=== PATIENT | female | born 1980 | race African-American/Black ===

== ENCOUNTER 2017-11-04 10:02 | Emergency (ER) | payer MEDICAID ==
[~2017-11-04] VITALS: Ht 170.2 cm; Wt 85.0 kg
[~2017-11-04 10:02] MED LIST: AMLO5 PO
[2017-11-04 10:09] VITALS: BP 159/100; PULSE 103; RESP 20; TEMP 97.9; O2SAT 100
--- NOTE | 2017-11-04 10:41 | PD ---
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 The patient states she missed her menstrual cycle last month and thought she was possibly . She did complain of mild nausea with 2 episodes of vomiting, however, took a test last week which was negative. The patient then developed light vaginal spotting this morning which has turned heavier, she now notes heavier vaginal bleeding. She does complain of lower pelvic pain and cramping. She denies any dysuria, frequency, urgency, or vaginal discharge. She denies any associated fever, chills, or sweats. Symptoms are moderate. PFSH Past Medical History Medical History: Denies Significant Hx Cancer: No Diabetes: No Diminished Hearing: No Hepatitis: No Hiatal Hernia: No Hypertension: Yes Immunizations Current: Yes Thyroid Disease: No ?: Unknown LMP: 318 : 3 Para: 1 Miscarriage: 0 : 2 Past Surgical History Pacemaker: No Social History Alcohol Use: Yes (OCCASIONALLY) Tobacco Use: Yes (1/2 PPD) Substance Use: No Allergies-Medications (Allergen,Severity, Reaction): Coded Allergies: No Known Allergies (Verified Adverse Reaction, Unknown, 11/04/17) Reported Meds & Prescriptions Reported Meds & Active Scripts Active Norvasc (Amlodipine Besylate) 5 Mg Tab 5 Mg PO DAILY 30 Days Review of Systems Except as stated in HPI: all other systems reviewed are Neg General / Constitutional: No: Fever Cardiovascular: No: Chest Pain or Discomfort Respiratory: No: Shortness of Breath Gastrointestinal: Positive: Nausea, Vomiting (Earlier in the week which has resolved), No: Abdominal Pain Genitourinary: Positive: Pelvic Pain, Vaginal Bleeding, No: Urgency, Frequency , Dysuria, Discharge Neurologic: No: Weakness, Dizziness Physical Exam Narrative GENERAL: Awake, alert, pleasant 37-year-old female who appears her stated age and is in no acute respiratory distress. SKIN: Focused skin assessment warm/dry. HEAD: Atraumatic. Normocephalic. EYES: No injection or drainage. NECK: Trachea midline. No JVD. CARDIOVASCULAR: Regular rate and rhythm. No murmur appreciated. RESPIRATORY: No accessory muscle use. Clear to auscultation. Breath sounds equal bilaterally. GASTROINTESTINAL: Abdomen soft, mild suprapubic tenderness. No rebound tenderness. No guarding or rigidity. Back: No CVA tenderness. MUSCULOSKELETAL: No obvious deformities. No clubbing. No cyanosis. No edema. NEUROLOGICAL: Awake and alert. No obvious cranial nerve deficits. Motor grossly within normal limits. Normal speech. PSYCHIATRIC: Appropriate mood and affect; insight and judgment normal. Data Data Last Documented VS Vital Signs Date Time Temp Pulse Resp B/P (MAP) Pulse Ox O2 Delivery O2 Flow Rate FiO2 11/04/17 10:09 97.9 103 20 159/100 (119) 100 Orders Orders Beta Hcg (Quant/Titer) (11/04/17 10:37) Ed Discharge Order (11/04/17 11:53) Ibuprofen (Motrin) (11/04/17 12:00) Labs Laboratory Tests Test 11/04/17 10:48 Human Chorionic Gonadotropin, Quant LESS THAN 1 MIU/ML [facility] Medical Decision Making Medical Screen Exam Complete: Yes Emergency Medical Condition: Yes Medical Record Reviewed: Yes Interpretation(s) Laboratory Tests Test 11/04/17 10:48 Human Chorionic Gonadotropin, Quant LESS THAN 1 MIU/ML Differential Diagnosis Differential diagnosis includes ectopic , threatened AB, missed AB, , dysmenorrhea, menorrhagia, abnormal uterine bleeding. Narrative Course Patient had symptoms consistent with possible with nausea, vomiting, and missed menstrual cycle, however, had a negative UA test at home. Therefore, quantitative beta-hCG was sent to lab. Quantitative beta-hCG is less than 1. The patient is not . The patient was administered ibuprofen 600 mg orally will be discharged home in ibuprofen 600 mg every 6 hours as needed for pain and cramping. She is advised to follow-up with her primary physician. Return if symptoms worsen or progress. Diagnosis Primary Impression: Dysmenorrhea Patient Instructions: General Instructions Additional Instructions: Medications as directed. Follow-up with your primary physician. Return if symptoms worsen or progress. Med/Other Pt SpecificInfo: Prescription(s) given Scripts Ibuprofen (Ibuprofen) 600 Mg Tab 600 MG PO Q6H Y for Pain/Inflammation, #20 TAB 0 Refills Prov: Luis Carlos Dickey MD 11/04/17 Disposition: 01 DISCHARGE HOME Condition: Stable Luis Carlos Dickey MD November 04, 2017 10:41
[2017-11-04] MEDS ORDERED: IBUP-232 PO (11:57)
[2017-11-04] MEDS ORDERED: IBUPROFEN 600 MG TAB PO ONE (12:00)
== END 2017-11-04 12:10 | disposition home or self-care (01) ==
LOC: NEPD 10:02
DX: N94.6 Dysmenorrhea, unspecified (principal); R10.2 Pelvic and perineal pain; R11.2 Nausea with vomiting, unspecified; F17.200 Nicotine dependence, unspecified, uncomplicated; I10 Essential (primary) hypertension
CPT/HCPCS: 84702; 99283

== ENCOUNTER 2017-12-28 22:18 | Emergency (ER) | payer MEDICAID ==
[~2017-12-28] VITALS: Ht 165.1 cm; Wt 78.0 kg
[~2017-12-28 22:18] MED LIST changes: +IBUP-232 PO
[2017-12-28 23:07] VITALS: BP 142/88; PULSE 98; RESP 22; TEMP 98.5; O2SAT 97
--- NOTE | 2017-12-29 00:32 | RADRPT ---
EXAM DATE: 12/29/2017 12:18 AM EDT AGE/SEX: 37 years / Female INDICATIONS: Anterior chest wall pain, and back pain. CLINICAL DATA: This is the patient's initial encounter. Patient reports that signs and symptoms have been present for 1 day and indicates a pain score of 8/10. MEDICAL/SURGICAL HISTORY: None. None. COMPARISON: No prior exams available for comparison. FINDINGS: The heart size is normal. There is minimal increased density seen at the bases. The mid and upper samira gs are clear. Significant effusion is not seen. CONCLUSION: Minimal increased density at the bases likely related to minimal atelectasis or consolidation. Electronically signed by: Ariel García MD 12/29/2017 12:30 AM EDT
--- NOTE | 2017-12-29 00:33 | RADRPT ---
EXAM DATE: 12/29/2017 12:27 AM EDT AGE/SEX: 37 years / Female INDICATIONS: Trauma; fall. CLINICAL DATA: This is the patient's initial encounter. Patient reports that signs and symptoms have been present for 1 day and indicates a pain score of 2/10. MEDICAL/SURGICAL HISTORY: None. None. RADIATION DOSE: 56.35 CTDI (mGy) COMPARISON: No prior exams available for comparison. TECHNIQUE: CT of the head without contrast. Using automated exposure control and adjustment of the mA and/or kV according to patient size, radiation dose was kept as low as reasonably achievable to ob tain optimal diagnostic quality images. DICOM format image data is available electronically for revi ew and comparison. FINDINGS: Cerebrum: The ventricles are normal for age. No evidence of midline shift, mass lesion, hemorrhage or acute infarction. No extraaxial fluid collections are seen. Posterior Fossa: The cerebellum and brainstem are intact. The 4th ventricle is midline. The cerebe llopontine angle is unremarkable. Extracranial: The visualized portion of the orbits is intact. Skull: The calvaria is intact. No evidence of skull fracture. CONCLUSION: Negative noncontrast CT examination the head. Electronically signed by: Ariel García MD 12/29/2017 12:32 AM EDT
[2017-12-29 00:38] LABS: AUTOMATED NEUTROPHIL # 14.8 TH/MM3 (1.8-7.7); BASOPHIL % 0.2 % (0.0-2.0); EOSINOPHIL % 0.1 % (0.0-4.0); HEMATOCRIT 40.6 % (35.0-46.0); HEMOGLOBIN 13.9 GM/DL (11.6-15.3); LYMPH % 11.5 % (9.0-44.0); LYMPHOCYTE # 2.1 TH/MM3 (1.0-4.8); MEAN CELL VOLUME 92.6 FL (80.0-100.0); MEAN CORPUSCULAR HEMOGLOBIN 31.6 PG (27.0-34.0); MEAN CORPUSCULAR HGB CONC 34.2 % (32.0-36.0); MEAN PLATELET VOLUME 7.6 FL (7.0-11.0); MONO % 5.1 % (0.0-8.0); MONOCYTE # 0.9 TH/MM3 (0-0.9); NEUT % 83.1 % (16.0-70.0); PLATELET COUNT 333 TH/MM3 (150-450); RED BLOOD COUNT 4.38 MIL/MM3 (4.00-5.30); RED CELL DISTRIBUTION WIDTH 14.4 % (11.6-17.2); WHITE BLOOD COUNT 17.9 TH/MM3 (4.0-11.0)
--- NOTE | 2017-12-29 00:59 | PD ---
HPI Chief Complaint: Respiratory Symptoms Time Seen by Provider: 23:50 Travel History International Travel<30 days: No Contact w/Intl Traveler<30days: No Traveled to known affect area: No History of Present Illness HPI The patient is a 37 year old female who presents to the [facility] emergency department with a history of coughing prior to arrival at approximately 8 PM when she felt a sudden pop and the left side of her mid back. The patient reports that she developed a severe pain on the left side. She reports that the pain radiated around to the lower chest. She reports that it is made worse with any movement or taking a deep breath. The patient reports that she went to lie down after taking Aleve and the pain was improved, however when she tried to stand up to go to the bathroom the pain recurred. She reports that she slid down on the floor and hit her head. She reportedly had an episode of shaking after hitting her head for 4 seconds. She did not have any postictal state. She did not bite her tongue. The patient denies having any nausea or vomiting. She reports that she has had some congestion recently, however no productive cough. She denies having any recent fevers. She reports that over the last week she has had flank pain that she describes as a sensation of gas, a bubble sensation in the left side of her back. She denies having any dysuria, hematuria, urinary urgency, or frequency associated with this. She denies having any neck pain, paresthesias, or weakness of her extremities. She denies having abdominal pain, diarrhea, or other neurologic symptoms. The patient reports that she has been moving her bowels regularly. She last moved her bowels yesterday. The patient denies having any numbness or tingling that radiates down her legs. She denies having any pain that radiates down her legs. She denies any loss of bowel or bladder control. She denies any IV drug use. She denies having any night sweats. [facility] Past Medical History Narrative Medical The patient's past medical history is significant for hypertension. Her last menstrual cycle was December 13, 2017. Cancer: No Cardiovascular Problems: No Diabetes: No Diminished Hearing: No Hepatitis: No Hiatal Hernia: No Hypertension: Yes Respiratory: No Immunizations Current: Yes Thyroid Disease: No Tetanus Vaccination: Unknown Influenza Vaccination: No ?: Unknown LMP: 12/13/17 : 3 Para: 1 Miscarriage: 0 : 2 Past Surgical History Narrative Surgical The patient's past surgical history is significant for carpal tunnel release on the right Pacemaker: No Other Surgery: No Social History Alcohol Use: Yes (OCCASIONALLY) Tobacco Use: Yes (1/2 PPD) Substance Use: No Allergies-Medications (Allergen,Severity, Reaction): Coded Allergies: No Known Allergies (Verified Adverse Reaction, Unknown, 12/28/17) Reported Meds & Prescriptions Reported Meds & Active Scripts Active Ibuprofen 600 Mg Tab 600 Mg PO Q6H PRN Norvasc (Amlodipine Besylate) 5 Mg Tab 5 Mg PO DAILY 30 Days Review of Systems Except as stated in HPI: all other systems reviewed are Neg General / Constitutional: No: Fever Eyes: No: Visual changes HENT: Positive: Congestion, No: Headaches, Neck Stiffness, Neck Pain Cardiovascular: Positive: Dyspnea on exertion, No: Chest Pain or Discomfort Respiratory: Positive: Cough, Shortness of Breath Gastrointestinal: No: Nausea, Vomiting, Diarrhea, Abdominal Pain Genitourinary: Positive: Flank Pain (Left side), No: Dysuria Musculoskeletal: Positive: Myalgias, Pain Skin: No Rash Neurologic: No: Weakness, Focal Abnormalities, Change in Mentation, Slurred Speech, Sensory Disturbance Psychiatric: No: Depression Endocrine: No: Polydipsia Hematologic/Lymphatic: No: Easy Bruising Physical Exam Narrative General: The patient is a well-developed well-nourished female in no acute distress. Head and Neck exam: Head is normocephalic atraumatic. Eyes: EOMI, pupils are equal round and reactive to light. Nose: Midline septum with pink mucous membranes Mouth: Dentition unremarkable. Moist mucus membranes. Posterior oropharynx is not erythematous. No tonsillar hypertrophy. Uvula midline. Airway patent. Neck: No palpable lymphadenopathy. No nuchal rigidity. No thyromegaly. Cardiovascular: Regular rate and rhythm without murmurs, gallops, or rubs. No pulse deficit to the extremities on simultaneous auscultation and palpation of her radial artery. Lungs: Clear to auscultation bilaterally. No wheezes, rhonchi, or rales. Abdomen: Soft, without tenderness to palpation in all 4 quadrants of the abdomen. No guarding, rebound, or rigidity. Normal bowel sounds are audible. No tenderness on palpation of McBurney's point. Negative Mg sign. Extremities: No clubbing, cyanosis, or edema. 2+ pulses in all 4 extremities. No calf tenderness on palpation. Back: No spinous process tenderness to palpation. The patient has paraspinal muscle tenderness on palpation along the lower thoracic, upper lumbar paraspinal musculature of the left side. The patient has left-sided CVA tenderness on palpation. No rashes noted. The patient has a positive straight leg raise on the left. Neurologic Exam: Cranial nerves 2-12 were intact on exam. Strength is 5/5 in all 4 extremities. No sensory deficits noted. Skin Exam: No rash noted. Intact skin that is warm and dry. Data Data Last Documented VS Vital Signs Date Time Temp Pulse Resp B/P (MAP) Pulse Ox O2 Delivery O2 Flow Rate FiO2 12/29/17 02:48 87 19 145/77 (99) 98 Room Air 12/28/17 23:07 98.5 Orders Orders Electrocardiogram (12/29/17 00:05) Complete Blood Count With Diff (12/29/17 00:05) Comprehensive Metabolic Panel (12/29/17 00:05) Creatine Kinase (Cpk) (12/29/17 00:05) Ckmb (Isoenzyme) Profile (12/29/17 00:05) Troponin I (12/29/17 00:05) B-Type Natriuretic Peptide (12/29/17 00:05) Prothrombin Time / Inr (Pt) (12/29/17 00:05) Act Partial Throm Time (Ptt) (12/29/17 00:05) Lipase (12/29/17 00:05) Urinalysis - C+S If Indicated (12/29/17 00:05) Magnesium (Mg) (12/29/17 00:05) Thyroid Stimulating Hormone (12/29/17 00:05) Chest, Single Ap (12/29/17 00:05) Ct Brain W/O Iv Contrast(Rout) (12/29/17 00:05) Iv Access Insert/Monitor (12/29/17 00:05) Ecg Monitoring (12/29/17 00:05) Oximetry (12/29/17 00:05) Ed Urine Pregnancytest Poc (12/29/17 00:05) Drug Screen, Random Urine (12/29/17 00:05) Alcohol (Ethanol) (12/29/17 00:05) D-Dimer (12/29/17 00:05) Spine, Thoracic-Ap/Lat/Sw(3vw) (12/29/17 00:47) Spine, Lumbar - Ltd (Ap & Lat) (12/29/17 00:47) Sodium Chlor 0.9% 1000 Ml Inj (Ns 1000 M (12/29/17 01:00) Morphine Inj (Morphine Inj) (12/29/17 01:00) Prochlorperazine Inj (Compazine Inj) (12/29/17 01:00) CKMB (12/29/17 00:15) CKMB% (12/29/17 00:15) Cath For Specimen (12/29/17 02:46) Ceftriaxone Inj (Rocephin Inj) (12/29/17 03:30) Labs Laboratory Tests Test 12/29/17 00:15 12/29/17 02:45 White Blood Count 17.9 TH/MM3 Red Blood Count 4.38 MIL/MM3 Hemoglobin 13.9 GM/DL Hematocrit 40.6 % Mean Corpuscular Volume 92.6 FL Mean Corpuscular Hemoglobin 31.6 PG Mean Corpuscular Hemoglobin Concent 34.2 % Red Cell Distribution Width 14.4 % Platelet Count 333 TH/MM3 Mean Platelet Volume 7.6 FL Neutrophils (%) (Auto) 83.1 % Lymphocytes (%) (Auto) 11.5 % Monocytes (%) (Auto) 5.1 % Eosinophils (%) (Auto) 0.1 % Basophils (%) (Auto) 0.2 % Neutrophils # (Auto) 14.8 TH/MM3 Lymphocytes # (Auto) 2.1 TH/MM3 Monocytes # (Auto) 0.9 TH/MM3 Eosinophils # (Auto) 0.0 TH/MM3 Basophils # (Auto) 0.0 TH/MM3 CBC Comment DIFF FINAL Differential Comment Prothrombin Time 10.0 SEC Prothromb Time International Ratio 1.0 RATIO Activated Partial Thromboplast Time 25.9 SEC D-Dimer Quantitative (PE/DVT) 0.29 MG/L FEU Blood Urea Nitrogen 11 MG/DL Creatinine 0.91 MG/DL Random Glucose 121 MG/DL Total Protein 8.6 GM/DL Albumin 4.3 GM/DL Calcium Level 9.5 MG/DL Magnesium Level 2.3 MG/DL Alkaline Phosphatase 78 U/L Aspartate Amino Transf (AST/SGOT) 16 U/L Alanine Aminotransferase (ALT/SGPT) 25 U/L Total Bilirubin 0.3 MG/DL Sodium Level 138 MEQ/L Potassium Level 4.0 MEQ/L Chloride Level 107 MEQ/L Carbon Dioxide Level 21.7 MEQ/L Anion Gap 9 MEQ/L Estimat Glomerular Filtration Rate 85 ML/MIN Total Creatine Kinase 317 U/L Creatine Kinase MB 0.8 NG/ML Creatine Kinase MB % 0.3 % Troponin I LESS THAN 0.02 NG/ML B-Type Natriuretic Peptide 6 PG/ML Lipase 140 U/L Thyroid Stimulating Hormone 3rd Gen 4.230 uIU/ML Ethyl Alcohol Level LESS THAN 3 MG/DL Urine Color YELLOW Urine Turbidity HAZY Urine pH 6.0 Urine Specific Gould 1.008 Urine Protein NEG mg/dL Urine Glucose (UA) NEG mg/dL Urine Ketones NEG mg/dL Urine Occult Blood SMALL Urine Nitrite NEG Urine Bilirubin NEG Urine Urobilinogen LESS THAN 2 mg/dL Urine Leukocyte Esterase TRACE Urine RBC 1 /hpf Urine WBC 8 /hpf Urine Squamous Epithelial Cells 8 /hpf Urine Mucus FEW /lpf Microscopic Urinalysis Comment CULT NOT INDICATED Urine Opiates Screen NEG Urine Barbiturates Screen NEG Urine Amphetamines Screen NEG Urine Benzodiazepines Screen NEG Urine Cocaine Screen NEG Urine Cannabinoids Screen POS MDM Medical Decision Making Medical Screen Exam Complete: Yes Emergency Medical Condition: Yes Medical Record Reviewed: Yes Differential Diagnosis Pneumothorax, versus muscle strain, versus fracture, versus pyelonephritis, versus pneumonia, versus pulmonary embolus, versus kidney stone Narrative Course During the course of the patient's emergency department visit, the patient's history, examination, and differential diagnosis were reviewed with the patient. The patient was placed on a quality assurance monitor with oximetry and frequent blood pressure monitoring. The patient had IV access obtained and blood work sent for analysis. The patient had an EKG done on arrival. The patient's EKG shows a sinus rhythm heart rate 92, QRS duration 94 ms, QTC [address] segment elevation. T waves are inverted in lead III. The patient was initially provided morphine for pain, Compazine for nausea, normal saline IV fluids The patient's laboratory studies were reviewed and remarkable for 12/29/17 00:15 Total Protein 8.6 H, Albumin 4.3, Calcium Level 9.5, Magnesium Level 2.3, Alkaline Phosphatase 78, Aspartate Amino Transf (AST/SGOT) 16, Alanine Aminotransferase (ALT/SGPT) 25, Total Bilirubin 0.3. Given the patient's elevated white blood cell count, there was increased concern for possible underlying pneumonia, versus pyelonephritis, versus UTI. Cardiac enzymes were within normal limits, TSH was elevated at 4.23. The patient will be given a copy of her TSH for follow-up as an outpatient with her primary care physician for further testing for hypothyroid disorder. Lipase was within normal limits. PT PTT within normal limits, d-dimer is 0.29 decreasing likelihood of pulmonary embolism in this patient with no other significant risk factors. Urine drug screen is positive for cannabinoids, alcohol level less than 3, urinalysis shows small occult blood trace leukocyte esterase 1 RBC 8 WBCs, few mucus. Given the patient's flank pain, the patient was given Rocephin 1 g IV. Radiology studies were reviewed and remarkable for Last Impressions Thoracic Spine X-Ray 12/29/1746 Signed Impressions: CONCLUSION: Negative thoracic spine series. Lumbar Spine X-Ray 12/29/1746 Signed Impressions: CONCLUSION: Degenerative change at the L5-S1 level. Head CT 12/29/174 Signed Impressions: CONCLUSION: Negative noncontrast CT examination the head. Chest X-Ray 12/29/174 Signed Impressions: CONCLUSION: Minimal increased density at the bases likely related to minimal atelectasis or consolidation. The patient on reexamination is feeling improved. The patient will be discharged home with a prescription for antibiotic for urinary tract infection. The patient will also be given a prescription for an anti-inflammatory pain medication and muscle relaxer for suspected muscle strain. The patient is instructed to follow-up with her primary care physician for reexamination in the next 2 days for improvement. The patient is resting comfortably and feels better, is alert and in no distress. The patient's results and examination findings were discussed with the patient. The repeat examination is unremarkable and benign. The history, exam, diagnostic testing, and current condition do not suggest any significant pathology to warrant further testing, continued ED treatment, admission, or surgical evaluation at this point. The vital signs have been stable. The patient does not have uncontrollable pain, intractable vomiting, or other significant symptoms. The patient's condition is stable and appropriate for discharge. The patient will pursue further outpatient evaluation with a primary care physician or other designated or consulting physician as indicated in the discharge instructions. The patient is instructed to report back to the emergency department immediately for reexamination in the mean time if she develops any new or worsening signs or symptoms. The patient expressed understanding and was agreeable with this plan. Diagnosis Primary Impression: Back pain Qualified Codes: M54.6 - Pain in thoracic spine Additional Impressions: Muscle strain UTI (urinary tract infection) Qualified Codes: N30.00 - Acute cystitis without hematuria Referrals: [facility] 2 days Primary Care Physician 2 days Patient Instructions: Acute Low Back Pain (ED), General Instructions, Muscle Strain (ED), Urinary Tract Infection in Women (ED) Med/Other Pt SpecificInfo: Prescription(s) given Scripts Cephalexin (Keflex) 500 Mg Cap 500 MG PO Q8H for Infection, #30 CAP 0 Refills Prov: Jenni Nunn MD 12/29/17 Cyclobenzaprine (Flexeril) 5 Mg Tab 5 MG PO TID Y for SPASM, #15 TAB 0 Refills Prov: Jenni Nunn MD 12/29/[address] (EC-Naprosyn) 500 Mg Tabdr 500 MG PO BID Y for PAIN GREATER THAN 5, #10 TAB 0 Refills Prov: Jenni Nunn MD 12/29/17 Disposition: 01 DISCHARGE HOME Condition: Stable Jenni Nunn MD Dec 29, 2017 00:59
[2017-12-29 01:00] LABS: ALBUMIN 4.3 GM/DL (3.4-5.0); ALT (GPT) 25 U/L (10-53); AST (GOT) 16 U/L (15-37); BICARBONATE 21.7 MEQ/L (21.0-32.0); BLOOD UREA NITROGEN 11 MG/DL (7-18); CALCIUM 9.5 MG/DL (8.5-10.1); CHLORIDE 107 MEQ/L (98-107); CREATININE 0.91 MG/DL (0.50-1.00); GLOMERULAR FILTRATION RATE 85 ML/MIN (>89); GLUCOSE,RANDOM 121 MG/DL (74-106); MAGNESIUM 2.3 MG/DL (1.5-2.5); SODIUM (NA) 138 MEQ/L (136-145)
[2017-12-29] MEDS ORDERED: PROCHLORPERAZINE INJ 10 MG/2 ML VIAL IV PUSH ONE (01:00)
[2017-12-29] MEDS ORDERED: SODIUM CHLOR 0.9% 1000 ML INJ 1,000 ML IV ONE (01:00)
[2017-12-29] MEDS ORDERED: MORPHINE SULFATE 4 MG/ML INJ IV PUSH ONE (01:00)
[2017-12-29 01:09] LABS: ALKALINE PHOSPHATASE 78 U/L (45-117); TOTAL BILIRUBIN ADULT 0.3 MG/DL (0.2-1.0); TOTAL PROTEIN 8.6 GM/DL (6.4-8.2); TROPONIN I LESS THAN 0.02 NG/ML (0.02-0.05)
[2017-12-29 01:14] LABS: D-DIMER 0.29 MG/L FEU (0.00-0.50)
--- NOTE | 2017-12-29 01:31 | RADRPT ---
EXAM DATE: 12/29/2017 1:28 AM EDT AGE/SEX: 37 years / Female INDICATIONS: Trauma CLINICAL DATA: This is the patient's initial encounter. Patient reports that signs and symptoms have been present for 1 day and indicates a pain score of 10/10. MEDICAL/SURGICAL HISTORY: None. None. COMPARISON: No prior exams available for comparison. FINDINGS: The vertebral bodies are in normal alignment without evidence of compression deformity Bone density is normal for age. Soft tissues are grossly intact. CONCLUSION: Negative thoracic spine series. Electronically signed by: Ariel García MD 12/29/2017 1:29 AM EDT
--- NOTE | 2017-12-29 01:37 | RADRPT ---
EXAM DATE: 12/29/2017 1:30 AM EDT AGE/SEX: 37 years / Female INDICATIONS: Trauma. CLINICAL DATA: This is the patient's initial encounter. Patient reports that signs and symptoms have been present for 1 day and indicates a pain score of 10/10. MEDICAL/SURGICAL HISTORY: None. None. COMPARISON: No prior exams available for comparison. FINDINGS: The vertebral bodies are in normal alignment without evidence of compression deformity . There is mil d narrowing of the L5-S1 disc space with anterior marginal osteophytes. The remaining disc spaces are normal in height. Bone density is normal for age. Soft tissues are grossly intact. CONCLUSION: Degenerative change at the L5-S1 level. Electronically signed by: Ariel García MD 12/29/2017 1:35 AM EDT
[2017-12-29 02:48] VITALS: BP 145/77; PULSE 87; RESP 19; O2SAT 98
[2017-12-29 03:05] LABS: BILIRUBIN, URINE NEG (NEG); BLOOD, URINE SMALL (NEG); GLUCOSE,URINE NEG (NEG); KETONE, URINE NEG (NEG); MUCUS URINE FEW /lpf (OCC); NITRITE,URINE NEG (NEG); SQUAMOUS EPITHELIAL CELL URINE 8 /hpf (0-5); URINE COLOR YELLOW (YELLW/STRAW); URINE LEUKOCYTE ESTERASE TRACE (NEG)
[2017-12-29] MEDS ORDERED: cefTRIAXone INJ 1,000 MG in SODIUM CHLORIDE 0.9% INJ 100 ML IV ONE (03:30)
[2017-12-29] MEDS ORDERED: CEPH-460 PO (03:51)
[2017-12-29] MEDS ORDERED: NAPR-810 PO (03:51)
[2017-12-29] MEDS ORDERED: CYCL5TAB PO (03:51)
--- NOTE | 2017-12-29 13:36 | EKG ---
Date Performed: 12/29/2017 Time Performed: 00:50:16 PTAGE: 37 years EKG: Sinus rhythm NORMAL ECG NO PREVIOUS TRACING DOCTOR: Benito Marrero Interpretating Date/Time 12/29/2017 13:33:56
== END 2017-12-29 04:36 | disposition home or self-care (01) ==
LOC: NEPC 22:18
DX: M54.6 Pain in thoracic spine (principal); N30.00 Acute cystitis without hematuria; R05 Cough; R06.02 Shortness of breath; I10 Essential (primary) hypertension; F17.200 Nicotine dependence, unspecified, uncomplicated; R07.89 Other chest pain; Z79.899 Other long term (current) drug therapy
CPT/HCPCS: 70450; 71045; 72072; 72100; 80053; 80307; 81001; 82550; 82552; 83690; 83735; 83880; 84443; 84484; 84703; 85025; 85379; 85610; 85730; 93005; 96361; 96365; 96375; 99285; J0696; J0780; J2270; J7030